=== PATIENT | male | born 1945 | race Caucasian/White ===

== ENCOUNTER 2017-10-28 00:42 | Day surgery (SDC) | payer MEDICARE, OTHER ==
[~2017-10-28] VITALS: Ht 203.2 cm; Wt 82.1 kg
[2017-10-28] VITALS (7 sets, daily range): BP systolic 134–144; BP diastolic 86–102
[~2017-10-28 00:42] MED LIST: ACET-1718 PO; ACET-3017 PO; ALB17R INH; ASPI-1471 PO; AZIT-1 PO; CLA500 PO; CLAR-12 PO; CLIN300C99 PO; DIPH-1 PO; LORA10CA3 PO; METR-160 PO; NO ROUTINE MEDS; PROC5L PO; PSE30 PO; PSEU120T68 PO; SCOT TD; TRIA10.8; TRIA15CR40 TP
[2017-10-28] MEDS ORDERED: ONDANSETRON 4 MG/2 ML VIAL ONE (10:20)
[2017-10-28] MEDS ORDERED: ROCURONIUM BROM 10 MG/ML 10 ML ONE (10:20)
[2017-10-28] MEDS: FAMOTIDINE 20 MG TAB PO ONE ×2 (10:20→11:06)
[2017-10-28] MEDS ORDERED: LIDOCAINE MPF 1% 5 ML VIAL ONE (10:20)
[2017-10-28] MEDS ORDERED: DEXAMETHASONE SOD 4 MG/ML VIAL ONE (10:20)
[2017-10-28] MEDS ORDERED: LIDOCAINE/SOD BICARB 8.4% SYR ID ONE (10:20)
[2017-10-28] MEDS ORDERED: MIDAZOLAM 2 MG/2 ML VIAL IVP ONE (10:20)
[2017-10-28] MEDS ORDERED: SUGAMMADEX SOD 200 MG/2 ML SDV ONE (10:20)
[2017-10-28] MEDS ORDERED: NORMOSOL R SOLN(*) 1000 ML BAG 1,000 ML IV PRN (10:20)
[2017-10-28] MEDS ORDERED: fentaNYL CITR 250 MCG/5 ML AMP ONE (10:20)
[2017-10-28] MEDS ORDERED: PROPOFOL EMUL(*) 10MG/ML 20 ML 20 ML ONE (10:20)
[2017-10-28] MEDS ORDERED: ceFAZolin(*) 1 GM VIAL 1 GM in NS(*) 0.9% 100 ML ADDVANT BAG 100 ML IVPB ONE (10:20)
[2017-10-28] MEDS ORDERED: FAMOTIDINE(*) 20MG/50ML PREMIX 50 ML IVPB ONE (11:07)
[2017-10-28] MEDS ORDERED: ROPIVACAINE 0.5% 20 ML VIAL ONE (11:18)
[2017-10-28 11:20] LABS: PLATELET COUNT, AUTOMATED 261 K/uL (150-450)
--- NOTE | 2017-10-28 11:34 | EKG ---
FACILITY: [facility] [place] PATIENT NAME: JEANE BAUTISTA : [id number] MR: [id number] V: [id number] EXAM DATE: ORDERING PHYSICIAN: MANFRED NEWELL TECHNOLOGIST: JW Wilson Reason : PRE-OP Blood Pressure : / mmHG Vent. Rate : 068 BPM Atrial Rate : 068 BPM P-R Int : 140 ms QRS Dur : 088 ms QT Int : 422 ms P-R-T Axes : 058 009 037 degrees QTc Int : 448 ms Sinus rhythm with marked sinus arrhythmia Otherwise normal ECG No previous ECGs available Confirmed by ALVA HUTSON ([id number]) on 10/30/2017 7:43:24 AM Referred By: HUA Confirmed By:ALVA HUTSON
[2017-10-28] MEDS ORDERED: OXYC-854 PO (13:42)
[2017-10-28] MEDS ORDERED: DOCU-416 PO (13:42)
--- NOTE | 2017-10-28 13:45 | Short(Outpt) Discharge Summary ---
Discharge Summary Reason for Hosp/Final Diag: (1) Left inguinal hernia Status: Chronic Hospital Course & Plan: Robotic LIH repair completed without problems. Departure Discharge to: Home, Self Care Discharge Instructions Home Meds Active Scripts Docusate Sodium (COLACE) 100 Mg Capsule, 1 CAP PO BID, #30 CAP 0 Refills TAKE WITH A FULL GLASS OF WATER Prov:ALVA SEQUEIRA MD 10/28/17 Oxycodone Hcl/Acet 5/325 Mg (ENDOCET 5-325 TABLET) 1 Each Tablet, 1-2 TAB PO Q4H Y for PAIN, #30 TAB 0 Refills Prov:ALVA SEQUEIRA MD 10/28/17 Triamcinolone Acetonide 0.1% Cr 15 Gm Tube (TRIAMCINOLONE ACETONIDE 0.1% CREAM) 15 Gm Cream..g., 1 KERVIN TP BID Y for RASH, #1 TUBE 1 Refill Prov:SIMON CARLOS MD 03/16/17 Diphenoxylate Hcl/Atropine (LOMOTIL TABLET) 1 Each Tablet, 1-2 TAB PO QID Y for diarrhea, #40 TAB 0 Refills Prov:SIMON CARLOS MD 01/26/17 Follow up Referrals: General Surgery - 11/16/17 @ Surgery, General with Alva Sequeira Md You have a follow up appointment scheduled with Dr. Sequeira on 11/16/17, at 3:30pm. Diet: Regular Activity: No Heavy Lifting Special Instructions: You may remove the white surgical dressings on 10/30/17, then you can shower. After showering, leave the incisions open to air but leave the steristrips in place until they fall off on their own. Do not immerse the incisions for 2 weeks. Avoid any activities that involve straining or lifting more than 10 pounds for 2 weeks. ALVA SEQUEIRA MD Oct 28, 2017 13:45
[2017-10-28] MEDS ORDERED: fentaNYL CITR 100 MCG/2 ML AMP ONE ×2 (13:50→14:07)
--- NOTE | 2017-10-28 13:53 | Post Operative Progress Note ---
Post Operative Progress Note Date: Oct 28, 2017 Time: 13:45 Surgeon: Jose Luis Dictation number: [id number] Anesthesia: GETA by Dr. Groves Pre-Op Diagnosis: LIH Post-Op Diagnosis: RAMONA Findings: Left indirect inguinal hernia Procedure(s): Robotic LIH repair with mesh Specimen Removed:(May be N/A): None Complications: None Fluids: See anesthesia record Estimated Blood Loss: Minimal Date OP Note Dictated: Oct 28, 2017 Time OP Note Dictated: 13:46 ALVA SEQUEIRA MD Oct 28, 2017 13:53
--- NOTE | 2017-10-28 20:37 | OPERATIVE REPORT 1 ---
EVENT DATE: October 28, 2017 SURGEON: Gigi Amaya MD ANESTHESIOLOGIST: Kirk Groves MD ANESTHESIA: General endotracheal anesthesia. PREOPERATIVE DIAGNOSIS Left inguinal hernia. POSTOPERATIVE DIAGNOSIS Left inguinal hernia. PROCEDURE PERFORMED Robotic left inguinal hernia repair with mesh. COMPLICATIONS None. CONDITION Stable. BLOOD LOSS Minimal. FINDINGS Left indirect inguinal hernia. There was no right inguinal hernia or other hernias. INDICATIONS This is a 72-year-old gentleman who presented to my office with a bulge in his left groin that was getting bigger and causing him discomfort, and he was requesting to have it repaired. He consented for a robotic left inguinal hernia repair. DESCRIPTION OF PROCEDURE The patient was brought to the operating room and placed supine on the operating table. General endotracheal anesthesia was administered, and his abdomen was prepped and draped in a sterile fashion. A timeout was completed. I injected the supraumbilical skin with 0.5% ropivacaine plain. I made a curvilinear frowning face type incision over the superior umbilical rim and dissected down through the dermis and subcutaneous fat. I identified the midline fascia, made a vertical incision in the midline fascia, grasped the fascial edges with Reji clamps, retracted the abdominal wall toward the ceiling, and then entered the peritoneal cavity with my finger. I placed interrupted 0 Vicryl sutures transversely through the vertical fascial defect and inserted a 12 mm Christina type robotic port through this wound and secured it in place with sutures. I insufflated the abdomen to a pressure of 15 mmHg and then inserted the robotic camera. Under direct visualization, I placed an 8 mm robotic port in the right mid abdomen and a second 8 mm port in the left mid abdomen. The patient was placed in Trendelenburg, and the robot was docked and targeted. The instruments were inserted. I scrubbed out and went to the console. I then divided the peritoneum from the midline over to the lateral portion of the peritoneum superomedial to the anterior superior iliac spine. I then the peritoneum from the preperitoneal tissues all the way down and identified the left pubic tubercle and Pankaj ligament which were cleaned off and then the entire iliopubic tract out to the anterior superior iliac spine which was cleaned off as well. I continued so I had nice rim even inferior to the iliopubic tract so as to allow the mesh to lay nice and flat without folding up. Tendon and nerves were actually seen, and no nerve injury occurred during this surgery. I then identified the cord structures and the hernia sac, and I stripped the hernia sac away from the cord structures. I did make a hole in the hernia sac, and this was closed with a V-Loc suture at the end of the case. Once the hernia sac was completely stripped away from the cord structures, and the vas and the gonadal vessels were identified, all were completely preserved. The cord structures were skeletonized. There was no direct defect or right inguinal defect. I inserted a large piece of ProGrip left-sided mesh into the abdominal cavity and laid it into place and then unfolded it. It covered the whole myopectineal arch and orifice quite nicely with overlap on all sides. Once I had it positioned in the way I wanted it, I pushed it into the tissue so it would not migrate. I then closed the resulting peritoneal incision with a running V-Loc suture, then closed the hole in the hernia sac, and tacked the hernia sac to the peritoneum. After this was completed, all the instruments were removed, and the robot was undocked. The abdomen was desufflated. All of the ports were removed. I placed an 0 Vicryl [id number]-bh-nziqo suture between the first two sutures in the midline and tied all three of these down with good reapproximation of the fascial edges and no remaining fascial defect. I then closed the skin at each port site with 4-0 Monocryl in a running subcuticular suture. The skin was cleaned and dried, and Steri-Strips were applied, followed by sterile surgical dressings. The patient was awakened and extubated in the operating room and transported to the recovery room in stable condition having tolerated the procedure without any apparent problems. RAZ
[2017-11-01] MEDS ORDERED: OXYC-854 PO (09:01)
== END 2017-10-28 14:48 | disposition home or self-care (01) ==
LOC: OR 00:42
PROVIDERS: ATTEND Surgery
DX: K40.90 Unilateral inguinal hernia, without obstruction or gangrene, not specified as recurrent (principal); I10 Essential (primary) hypertension
CPT/HCPCS: 36415; 49650; 85025; 93005; A9270; J0690; J1100; J2001; J2250; J2405; J2704; J2795; J3010; J3490; J7050; S2900; C1781

== ENCOUNTER → 2018-01-31 | Outpatient (CLI) | payer MEDICARE, OTHER ==
[~2018-01-31] MED LIST changes: +DOCU-416 PO; +GADOBENATE 529MG/1ML 15ML VIAL IVP ONE; +NS 0.9% 20 ML SDV 40 ML ONE; +OXYC-854 PO
--- NOTE | 2018-01-31 11:51 | RADIOLOGY IMAGING REPORT ---
FACILITY: [facility] PATIENT NAME: Nando Coleman : 1945 MR: [id number] V: [id number] EXAM DATE: ORDERING PHYSICIAN: EILEEN GAMBOA TECHNOLOGIST: Location: [facility] Patient: Nando Coleman : 1945 Visit/Account:[id number] Date of Sevice: 01/31/2018 ABDOMEN W W/O CONTRAST HISTORY: Abnormal CT of pancreas ADDITIONAL HISTORY: None. TECHNIQUE: TECHNIQUE: Multiplanar multisequence magnetic resonance imaging of the abdomen with and without intravenous contrast. CONTRAST: 15 mL of MultiHance COMPARISON: CT abdomen pelvis October 23, 2016 FINDINGS: Visualized lung bases: Grossly unremarkable. Liver: In the caudate lobe just anterior to the IVC there is a 1 x 1.2 x 0.9 cm area of contrast-enha ncement that appears to follow the portal venous phase of contrast enhancement likely a small inciden hilda hemangioma Gallbladder: Negative. Bile ducts: Nondistended and unremarkable. Spleen: Negative. Adrenal glands: Negative. Pancreas: Pancreas appears unremarkable there for the hypodensity along the medial aspect of the head on the prior CT likely represents a fatty cleft Kidneys: There are multiple small cysts in both kidneys, left more so than right Vessels/spaces/nodes: No bulky adenopathy or ascities. Visualized GI: The previously noted 8 mm nodule seen along the medial aspect of the gastric fundus on the prior CT is not appreciated by MR Bones/soft tissues: Unremarkable. IMPRESSION: The pancreas appears unremarkable there for the hypodensity along the medial aspect of the head of th e pancreas on the prior CT likely represented a fatty cleft There is a 1 x 1.2 x 0.9 cm area of contrast-enhancement in the caudate lobe of the liver just anteri or to the IVC which follows the portal venous phase of contrast enhancement likely represents a small incidental hemangioma Small renal cysts Previously noted 8 mm nodule along the medial aspect gastric fundus is no longer seen Report Dictated By: Tiffanie Severino MD at 01/31/2018 11:29 AM Report E-Signed By: Tiffanie Severino MD at 01/31/2018 11:46 AM WSN:[email or web address]
== END ==
LOC: MRI 02:57
PROVIDERS: ATTEND Surgery
DX: N28.1 Cyst of kidney, acquired (principal)
CPT/HCPCS: 74183; A9577; J7050

== ENCOUNTER → 2018-07-11 | Outpatient (CLI) | payer MEDICARE, OTHER ==
[~2018-07-11] MED LIST changes: -GADOBENATE 529MG/1ML 15ML VIAL IVP ONE; +IOPAMIDOL 76% 75 ML INFUS BTL 75 ML ONE; -NS 0.9% 20 ML SDV 40 ML ONE
--- NOTE | 2018-07-11 11:26 | RADIOLOGY IMAGING REPORT ---
FACILITY: [facility] PATIENT NAME: Nando Coleman : 1945 MR: [id number] V: [id number] EXAM DATE: ORDERING PHYSICIAN: ALVA SEQUEIRA TECHNOLOGIST: Location: Patient: Nando Coleman : 1945 Visit/Account:[id number] Date of Sevice: 07/11/2018 ABDOMEN/PELVIS W/WO CONTRAST HISTORY: Left groin pain TECHNIQUE: Axial images acquired through the abdomen/pelvis both with and without IV contrast.. Renita nal and sagittal reformatting also performed. Dose Lowering Technique One of the following dose optimization techniques was utilized in the performance of this exam: Autom ated exposure control; adjustment of the mA and/or kV according to the patient's size; or use of an i terative reconstruction technique. Specific details can be referenced in the facility's radiology C T exam operational policy. CONTRAST: 75 mL Isovue-370 COMPARISON: MR the abdomen January 31, [address] of the abdomen and pelvis October 23, 2016 FINDINGS: Visualized lung bases: Small calcified granulomas right middle lobe and right lower lobe Hepatobiliary: Subtle area of contrast-enhancement in the caudate lobe of the liver just anterior to the IVC represents the hemangioma identified on the prior MR the abdomen from January 31, 2018. This was much better depicted on the prior MR Spleen: Negative. Adrenals: Negative. Pancreas: Negative. Kidneys ureters and bladder: Subcentimeter cortical hypodensities in both kidneys likely represent cy sts although are too small to characterize . No demonstration of urolithiasis hydronephrosis or hyd roureter. The bladder wall appears thickened although may be related to underdistention with urine. Genitalia: Brachytherapy seeds are present within the prostate GI: There Is diverticulosis of the sigmoid colon although no CT evidence of acute diverticulitis. There is a moderate amount of fecal material in colon which can be seen with constipation Vessels/spaces/nodes: Serpiginous vessels are seen in the left side of the scrotal sac. This may re present a varicocele Bones/soft tissues: There is a small umbilical hernia containing fat. There are spondylotic changes lumbar spine Additional findings: None pertinent. IMPRESSION: No demonstration of urolithiasis, hydronephrosis or hydroureter Calcified granulomas in the right lung Serpiginous vessels are seen in the left side of the scrotal sac which could represent a varicocele Small focal hernia containing fat Diverticulosis sigmoid colon although no CT evidence of acute diverticulitis. Moderate amount of fecal material in the colon which can be seen with constipation Subtle area of contrast-enhancement in the caudate lobe of the liver just anterior to the IVC represe nts a hemangioma which was better seen on a prior MR Report Dictated By: Tiffanie Severino MD at 07/11/2018 11:08 AM Report E-Signed By: Tiffanie Severino MD at 07/11/2018 11:22 AM BRODYN:FLORENCIA
== END ==
LOC: CT 01:00
PROVIDERS: ATTEND Surgery
DX: K42.9 Umbilical hernia without obstruction or gangrene (principal); R91.8 Other nonspecific abnormal finding of lung field; K57.30 Diverticulosis of large intestine without perforation or abscess without bleeding; K59.00 Constipation, unspecified
CPT/HCPCS: 36415; 74178; 82565; Q9967

== ENCOUNTER → 2018-11-30 | Outpatient (CLI) | payer OTHER, MEDICARE ==
[~2018-11-30] MED LIST changes: -IOPAMIDOL 76% 75 ML INFUS BTL 75 ML ONE; -METR-160 PO; +METR500T15 PO
[2018-11-30 09:46] LABS: PLATELET COUNT, AUTOMATED 244 K/uL (150-450)
== END ==
LOC: LAB 09:24
PROVIDERS: ATTEND Internal Medicine
DX: I10 Essential (primary) hypertension (principal); R91.1 Solitary pulmonary nodule; Z85.46 Personal history of malignant neoplasm of prostate
CPT/HCPCS: 36415; 82565; 84520; 85025

== ENCOUNTER → 2018-12-06 | Outpatient (CLI) | payer OTHER, MEDICARE ==
[~2018-12-06] MED LIST changes: +IOPAMIDOL 76% 100 ML INFUS BTL 100 ML ONE
--- NOTE | 2018-12-06 13:55 | RADIOLOGY IMAGING REPORT ---
FACILITY: [facility] [place] PATIENT NAME: Nando Coleman : 1945 MR: [id number] V: [id number] EXAM DATE: ORDERING PHYSICIAN: RADHA GUILLAUME TECHNOLOGIST: Location: [facility] [place] Patient: Nando Coleman : 1945 Visit/Account:[id number] Date of Sevice: 12/06/2018 CT CHEST W & W/O CON History: pulmonary nodule ADDITIONAL CLINICAL HISTORY: None TECHNIQUE: Contiguous axial images were performed through the chest to the level of the adrenal gla nds with and without IV contrast. Coronal and sagittal reformatting was also performed.Dose Lowerin g Technique One of the following dose optimization techniques was utilized in the performance of this exam: Autom ated exposure control; adjustment of the mA and/or kV according to the patient's size; or use of an i terative reconstruction technique. Specific details can be referenced in the facility's radiology C T exam operational policy. Contrast: 75 mL Isovue-370 COMPARISON STUDIES: CT abdomen pelvis July 11, 2018. Lungs / Pleura: Very mild fibrotic changes are seen symmetrically in the pulmonary apices. there is an 11 x 5 mm pleural-based nodule posterior medial aspect of the superior segment of the ri ght lower lobe best seen on image 124 series 4. There are two contiguous pleural-based nodules posterior aspect of the right lower lobe one measuring 6 mm one measuring 3 mm. There are small calcified granulomas scattered throughout the lungs Mediastinum/nodes: negative. Heart and vessels: negative. Musculoskeletal / Body wall: There is a levoconvex scoliosis of the thoracolumbar spine. There are mild multilevel spondylotic changes Upper abdomen: There are subcentimeter cortical hypodensities in both kidneys which are too small t o characterize IMPRESSION: Scattered granulomas seen throughout the lungs There are three pleural-based nodules posterior medial aspect of the right upper lobe as described ab ove ranging in size up to 8 mm FLEISCHNER SOCIETY FOLLOW-UP GUIDELINES FOR NEWLY DETECTED INCIDENTAL NODULES IN PERSONS 35 YEARS OF AGE OR OLDER. *These recommendations do NOT apply to lung cancer screening, patients with immunosuppression or leo ents with a known primary malignancy. MULTIPLE SOLID NODULES If nodule size is < 6 mm: * Low risk patient ? No routine follow-up. * High risk patient ? Optional CT at 12 months. If nodule size is 6-8 mm: * Low risk patient ? CT at 3-6 months, then consider CT at 18-24 months if no change. * High risk patient ? CT at 3-6 months, then CT at 18-24 months if no change. If nodule size is > 8 mm: * Low risk patient ? CT at 3-6 months, then consider CT at 18-24 months if no change. * High risk patient ? CT at 3-6 months, then consider CT at 18-24 months if no change. LOW RISK PATIENT: Minimal or absent history of tobacco use and of other known risk factors. HIGH RISK PATIENT: Tobacco use, family history of lung cancer, upper pulmonary lobe location of nodul e, presence of emphysema, pulmonary fibrosis, older age. Joseline H, Tyshawn DP, Margie RUSSO, et al. Guidelines for Management of Incidental Pulmonary Nodules Dete cted on CT Images: From the Fleischner Society 2017. Radiology. [facility] Report Dictated By: Tiffanie Severino MD at 12/06/2018 1:38 PM Report E-Signed By: Tiffanie Severino MD at 12/06/2018 1:51 PM WSN:[email or web address]
== END ==
LOC: CT 01:12
PROVIDERS: ATTEND Internal Medicine
DX: R91.8 Other nonspecific abnormal finding of lung field (principal)
CPT/HCPCS: 71270; Q9967

== ENCOUNTER → 2019-05-15 | Outpatient (CLI) | payer MEDICARE ==
--- NOTE | 2019-05-15 11:04 | RADIOLOGY IMAGING REPORT ---
FACILITY: [facility] [place] PATIENT NAME: Nando Coleman : 1945 MR: [id number] V: [id number] EXAM DATE: ORDERING PHYSICIAN: RADHA GUILLAUME TECHNOLOGIST: Location: [facility] [place] Patient: Nando Coleman : 1945 Visit/Account:[id number] Date of Sevice: 05/15/2019 CT CHEST W & W/O CON History: Pulmonary nodule ADDITIONAL CLINICAL HISTORY: None TECHNIQUE: Contiguous axial images were performed through the chest to the level of the adrenal gla nds with and without IV contrast. Coronal and sagittal reformatting was also performed.Dose Lowerin g Technique One of the following dose optimization techniques was utilized in the performance of this exam: Autom ated exposure control; adjustment of the mA and/or kV according to the patient's size; or use of an i terative reconstruction technique. Specific details can be referenced in the facility's radiology C T exam operational policy. Contrast: 75 mL Isovue-370 COMPARISON STUDIES: December 06, 2018. Lungs / Pleura: Scattered calcified granulomas again seen throughout the lungs. The previously noted 11 x 5 mm pleural-based nodule posterior medial aspect of the superior segment o f the right lower lobe appears unchanged and is best appreciated on image 123 of series 7. The two contiguous pleural-based nodules posterior aspect of the right lower lobe also appear relativ karla unchanged one measuring 6 mm and one measuring 3 mm in diameter best appreciated on images 142 14 4 Mediastinum/nodes: negative. Heart and vessels: There are very mild calcified coronary arteries Musculoskeletal / Body wall: Levoconvex scoliosis of the lumbar spine with multilevel spondylotic c hanges. There are moderate to severe degenerative changes at both shoulder joints Upper abdomen: Subcentimeter hypodensities in both kidneys may represent cysts although are too sma ll to characterize IMPRESSION: The three pleural-based nodules ranging up to 8 mm in average diameter in the right lung appear relat ively unchanged when compared the prior study. FLEISCHNER SOCIETY FOLLOW-UP GUIDELINES FOR NEWLY DETECTED INCIDENTAL NODULES IN PERSONS 35 YEARS OF AGE OR OLDER. *These recommendations do NOT apply to lung cancer screening, patients with immunosuppression or leo ents with a known primary malignancy. MULTIPLE SOLID NODULES If nodule size is < 6 mm: * Low risk patient ? No routine follow-up. * High risk patient ? Optional CT at 12 months. If nodule size is 6-8 mm: * Low risk patient ? CT at 3-6 months, then consider CT at 18-24 months if no change. * High risk patient ? CT at 3-6 months, then CT at 18-24 months if no change. If nodule size is > 8 mm: * Low risk patient ? CT at 3-6 months, then consider CT at 18-24 months if no change. * High risk patient ? CT at 3-6 months, then consider CT at 18-24 months if no change. LOW RISK PATIENT: Minimal or absent history of tobacco use and of other known risk factors. HIGH RISK PATIENT: Tobacco use, family history of lung cancer, upper pulmonary lobe location of nodul e, presence of emphysema, pulmonary fibrosis, older age. Joseline H, Tyshawn DP, Ángelo JM, et al. Guidelines for Management of Incidental Pulmonary Nodules Dete cted on CT Images: From the Fleischner Society 2017. Radiology. [facility] Report Dictated By: Tiffanie Severino MD at 05/15/2019 10:41 AM Report E-Signed By: Tiffanie Severino MD at 05/15/2019 10:55 AM BRODYN:FLORENCIA
== END ==
LOC: CT 00:43
PROVIDERS: ATTEND Internal Medicine
DX: R91.8 Other nonspecific abnormal finding of lung field (principal)
CPT/HCPCS: 71270; Q9967